=== PATIENT | male | born 1950 | race Caucasian/White ===

== ENCOUNTER 2017-07-15 07:06 | Inpatient (IN) | payer OTHER ==
[~2017-07-15] VITALS: Ht 172.7 cm; Wt 81.6 kg
[2017-07-15] MEDS ORDERED: AMOX1TAB5 (07:36)
[2017-07-22] MEDS ORDERED: PROTECT PLUS S1 EACH PO (13:27)
== END 2017-07-22 19:20 | disposition home or self-care (01) | DRG 603 ==
LOC: ER 07:06 → SURH 12:22
PROC: 4A033R1 Measurement of Arterial Saturation, Peripheral, Percutaneous Approach (ICD-10-PCS; principal; 2017-07-15)
PROC: BQ3DZZZ Magnetic Resonance Imaging (MRI) of Right Lower Leg (ICD-10-PCS; 2017-07-15)
PROC: BT43ZZZ Ultrasonography of Bilateral Kidneys (ICD-10-PCS; 2017-07-15)
PROC: BW4GZZZ Ultrasonography of Pelvic Region (ICD-10-PCS; 2017-07-15)
DX: L03.115 Cellulitis of right lower limb (principal); N39.0 Urinary tract infection, site not specified; N17.8 Other acute kidney failure; G47.33 Obstructive sleep apnea (adult) (pediatric); N18.1 Chronic kidney disease, stage 1; T24.211A Burn of second degree of right thigh, initial encounter; X10.0XXA Contact with hot drinks, initial encounter; Y93.89 Activity, other specified; Y92.89 Other specified places as the place of occurrence of the external cause; Y99.8 Other external cause status; R33.8 Other retention of urine; C61 Malignant neoplasm of prostate
CPT/HCPCS: 73221

== ENCOUNTER 2017-08-10 13:39 | Outpatient (CLI) | payer OTHER ==
[~2017-08-10 13:39] MED LIST: AMOX1TAB5; PROTECT PLUS S1 EACH PO
== END 2017-08-10 13:44 | disposition home or self-care (01) ==
LOC: LAB 13:39
DX: N39.0 Urinary tract infection, site not specified (principal)

== ENCOUNTER 2017-08-10 16:24 | Outpatient (CLI) | payer OTHER | END 2017-08-10 17:00 | disposition home or self-care (01) | LOC: RAD 16:24 | DX: J32.8 Other chronic sinusitis (principal); R05 Cough ==

== ENCOUNTER → 2017-08-11 | Outpatient (CLI) | payer OTHER | END | disposition home or self-care (01) | LOC: TOM 08:21 | DX: C61 Malignant neoplasm of prostate (principal) ==

== ENCOUNTER 2017-08-15 08:48 | Outpatient (CLI) | payer OTHER | END 2017-08-15 17:32 | disposition home or self-care (01) | LOC: NUCLEAR 08:48 | DX: C61 Malignant neoplasm of prostate (principal); C79.51 Secondary malignant neoplasm of bone | CPT/HCPCS: 78306; A9503 ==

== ENCOUNTER 2017-08-23 13:50 | Outpatient (CLI) | payer OTHER | END 2017-08-23 13:58 | disposition home or self-care (01) | LOC: TOM 13:50 | DX: J32.0 Chronic maxillary sinusitis (principal); J34.1 Cyst and mucocele of nose and nasal sinus ==

== ENCOUNTER 2017-09-04 08:32 | Outpatient (CLI) | payer OTHER ==
[~2017-09-04] VITALS: Ht 172.7 cm; Wt 81.6 kg
== END 2017-09-04 08:45 | disposition home or self-care (01) ==
LOC: OFIC 805 08:32
DX: J30.89 Other allergic rhinitis (principal); R05 Cough; R09.81 Nasal congestion

== ENCOUNTER → 2017-09-14 | Outpatient (CLI) | payer OTHER ==
[~2017-09-14] MED LIST changes: +BACTRIM DS TAB1 EACH; +CIPRO500 MG PO; +PNEU16DI2; +ZANTAC150 M3; +ZANTAC300 MG PO
== END | disposition home or self-care (01) ==
LOC: LAB 09:01
DX: E55.9 Vitamin D deficiency, unspecified (principal); J84.09 Other alveolar and parieto-alveolar conditions; Z13.29 Encounter for screening for other suspected endocrine disorder; N28.89 Other specified disorders of kidney and ureter

== ENCOUNTER 2017-09-17 03:38 | Emergency (ER) | payer OTHER ==
[~2017-09-17] VITALS: Ht 172.7 cm; Wt 81.6 kg
[~2017-09-17 03:38] MED LIST changes: -BACTRIM DS TAB1 EACH; -CIPRO500 MG PO; -PNEU16DI2; -ZANTAC150 M3; -ZANTAC300 MG PO
[2017-09-17] MEDS ORDERED: PNEU16DI2 (04:05)
[2017-09-17] MEDS ORDERED: ZANTAC150 M3 (04:05)
[2017-09-17] MEDS ORDERED: BACTRIM DS TAB1 EACH (04:05)
[2017-09-17] MEDS ORDERED: ZANTAC300 MG PO (09:08)
[2017-09-17] MEDS ORDERED: CIPRO500 MG PO (09:08)
== END 2017-09-17 12:33 | disposition home or self-care (01) ==
LOC: ER 03:38
DX: N39.0 Urinary tract infection, site not specified (principal); K29.70 Gastritis, unspecified, without bleeding; D72.829 Elevated white blood cell count, unspecified

== ENCOUNTER → 2017-09-19 16:14 | Outpatient (CLI) | payer OTHER ==
[~2017-09-19 16:14] MED LIST changes: +BACTRIM DS TAB1 EACH; +CIPRO500 MG PO; +PNEU16DI2; +ZANTAC150 M3; +ZANTAC300 MG PO
== END | disposition home or self-care (01) ==
LOC: LAB 16:14
DX: D72.828 Other elevated white blood cell count (principal); N39.0 Urinary tract infection, site not specified

== ENCOUNTER 2017-09-20 09:22 | Outpatient (CLI) | payer OTHER | END 2017-09-20 15:00 | disposition home or self-care (01) | LOC: TOM 09:22 | DX: R05 Cough (principal); R07.0 Pain in throat; J84.17 Other interstitial pulmonary diseases with fibrosis in diseases classified elsewhere; Z77.090 Contact with and (suspected) exposure to asbestos; J41.0 Simple chronic bronchitis ==

== ENCOUNTER 2017-11-14 09:06 | Outpatient (CLI) | payer OTHER ==
[~2017-11-14] VITALS: Ht 152.4 cm; Wt 81.6 kg
== END 2017-11-14 17:00 | disposition home or self-care (01) ==
LOC: OFIC 805 09:06
DX: R05 Cough (principal); J30.89 Other allergic rhinitis; R09.81 Nasal congestion

== ENCOUNTER 2018-01-01 08:12 | Outpatient (CLI) | payer OTHER ==
[~2018-01-01] VITALS: Ht 152.4 cm; Wt 81.6 kg
== END 2018-01-01 08:35 | disposition home or self-care (01) ==
LOC: OFIC 805 08:12
DX: J30.89 Other allergic rhinitis (principal); R09.81 Nasal congestion; R05 Cough

== ENCOUNTER 2018-01-02 08:30 | Outpatient (CLI) | payer OTHER | END 2018-01-02 08:42 | disposition home or self-care (01) | LOC: RAD 08:30 | DX: R05 Cough (principal); E04.1 Nontoxic single thyroid nodule ==

== ENCOUNTER 2018-01-02 09:23 | Outpatient (CLI) | payer OTHER | END 2018-01-02 10:10 | disposition home or self-care (01) | LOC: LAB 09:23 | DX: K57.30 Diverticulosis of large intestine without perforation or abscess without bleeding (principal); K21.9 Gastro-esophageal reflux disease without esophagitis; R05 Cough; R14.3 Flatulence ==

== ENCOUNTER 2018-01-04 07:00 | Outpatient (CLI) | payer OTHER | END 2018-01-04 10:00 | disposition home or self-care (01) | LOC: LAB 07:00 | DX: R05 Cough (principal); K21.9 Gastro-esophageal reflux disease without esophagitis; R14.3 Flatulence; K57.30 Diverticulosis of large intestine without perforation or abscess without bleeding; C80.1 Malignant (primary) neoplasm, unspecified ==

== ENCOUNTER 2018-01-11 07:29 | Outpatient (CLI) | payer OTHER | END 2018-01-11 07:33 | disposition home or self-care (01) | LOC: SONOGRAMA 07:29 → MAMO-SONO 08:15 | DX: R05 Cough (principal); K21.9 Gastro-esophageal reflux disease without esophagitis; K57.30 Diverticulosis of large intestine without perforation or abscess without bleeding; K80.20 Calculus of gallbladder without cholecystitis without obstruction ==

== ENCOUNTER 2018-01-15 07:41 | Day surgery (SDC) | payer OTHER | END 2018-01-15 11:30 | disposition home or self-care (01) | LOC: AMB-ENDOS 07:41 | DX: K29.60 Other gastritis without bleeding (principal); K21.9 Gastro-esophageal reflux disease without esophagitis ==

== ENCOUNTER 2018-05-24 21:53 | Emergency (ER) | payer OTHER ==
[~2018-05-24] VITALS: Ht 172.7 cm; Wt 86.2 kg
== END 2018-05-24 22:37 | disposition home or self-care (01) ==
LOC: ER 21:53
DX: B34.9 Viral infection, unspecified (principal)

== ENCOUNTER 2018-07-05 07:12 | Outpatient (CLI) | payer OTHER | END 2018-07-05 07:32 | disposition home or self-care (01) | LOC: LAB 07:12 | DX: E03.8 Other specified hypothyroidism (principal); C61 Malignant neoplasm of prostate; I11.9 Hypertensive heart disease without heart failure; E78.2 Mixed hyperlipidemia; R73.09 Other abnormal glucose ==

== ENCOUNTER 2018-07-05 07:59 | Outpatient (CLI) | payer OTHER | END 2018-07-05 08:01 | disposition home or self-care (01) | LOC: SONOGRAMA 07:59 → MAMO-SONO 08:15 | DX: K76.0 Fatty (change of) liver, not elsewhere classified (principal) ==

== ENCOUNTER → 2020-06-20 | Emergency (ER) | payer OTHER ==
[~2020-06-20] VITALS: Ht 172.7 cm; Wt 87.5 kg
== END | disposition home or self-care (01) ==
LOC: ER 10:27
DX: S61.021A Laceration with foreign body of right thumb without damage to nail, initial encounter (principal); W45.8XXA Other foreign body or object entering through skin, initial encounter; Y93.64 Activity, baseball; Y92.39 Other specified sports and athletic area as the place of occurrence of the external cause; Y99.8 Other external cause status

== ENCOUNTER 2020-06-22 12:19 | Outpatient (CLI) | payer OTHER | END 2020-06-22 12:21 | disposition home or self-care (01) | LOC: TOM 12:19 | PROVIDERS: ATTEND Specialist | DX: C61 Malignant neoplasm of prostate (principal) ==

== ENCOUNTER → 2020-06-25 | Outpatient (CLI) | payer OTHER | END | disposition home or self-care (01) | LOC: NUCLEAR 14:30 | PROVIDERS: ATTEND Orthopaedic Surgery | DX: M81.0 Age-related osteoporosis without current pathological fracture (principal) ==

== ENCOUNTER 2020-06-29 16:15 | Outpatient (CLI) | payer OTHER | END 2020-06-29 16:20 | disposition home or self-care (01) | LOC: LAB 16:15 | PROVIDERS: ATTEND Orthopaedic Surgery | DX: E83.42 Hypomagnesemia (principal); M85.89 Other specified disorders of bone density and structure, multiple sites; E56.1 Deficiency of vitamin K ==

== ENCOUNTER 2021-04-26 23:52 | Inpatient (IN) | payer OTHER ==
[~2021-04-26] VITALS: Ht 172.7 cm; Wt 90.7 kg
[2021-04-27] MEDS ORDERED: TAMS0.4C PO (00:10)
--- NOTE | 2021-04-27 00:10 | NUR ---
SE RECIBE PACIENTE ALERTA Y ORIENTADO X3 QUIEN INDICA QUE BATES TENIDO DOLOR ABD DESDE EL CYRIL DE HOY. REFIERE QUE TUVO SANGRADO RECTAL NELIDA QUE PADECE DE HEMORROIDES Y QUE LAS MISMAS SE TRATATAS POR UN GASTROENTEROLOGO CHAD MES. REFIERE QUE HOY ORAL ABUNDATE SANGRADO EN DOS SANTOS ESCRETA Y COLOR HEREDIA BRILLANTE. SE MONITOREAN S/V Y SE UBICA PACIENTE.
--- NOTE | 2021-04-27 00:13 | NUR ---
SE NIURKASheeba GALVIN Y MAC 101.4 F.
--- NOTE | 2021-04-27 00:46 | NUR ---
PACIENTE EVALUADO POR DR MONTERO QUIEN [place] [facility]. RACHEL ALVARES ORIENTA A PACIENTE SOBRE EL MISMO Y REFIERE ENTENDER, LE NIURKA MUESTRAS DE LABORATORIO Y LE CANLAIZA BAJO MEDIDAS ASEPTICAS. LE ADM MED RAVEN ORDEN. PENDIENTE ESTUDIO PACIENTE SE MANTIENE BAJO OBSERVACION POR CAMBIOS SIGNIFICATIVOS EN DOS SANTOS TRATAMIENTO.
--- NOTE | 2021-04-27 06:15 | NUR ---
5:15AM SE NOTIFICA SONOGRAMA ABDOMINAL NOTIFICADO A PERSONAL DE TURNO (RUI).
--- NOTE | 2021-04-27 08:04 | NUR ---
SE RECIBE PACIENTE MASCULINO PENDIENTE DE SONOGRAMA ABDOMINAL. PACIENTE PENDIENTE DE ENTREGAR FECAL MUESTRA DE ESCRETA.
[2021-04-28] MEDS ORDERED: HYDROCORTISONE30 G4 (11:12)
== END 2021-05-08 11:34 | disposition home or self-care (01) | DRG 446 ==
LOC: ER 23:52 → SEC-K 04-27 10:39 → SURH 04-27 10:39
PROVIDERS: ADMIT Surgery; ATTEND Surgery
PROC: BW21YZZ Computerized Tomography (CT Scan) of Abdomen and Pelvis using Other Contrast (ICD-10-PCS; 2021-04-27)
PROC: BW40ZZZ Ultrasonography of Abdomen (ICD-10-PCS; 2021-04-27)
PROC: 02HV33Z Insertion of Infusion Device into Superior Vena Cava, Percutaneous Approach (ICD-10-PCS; 2021-04-29)
PROC: 3E0436Z Introduction of Nutritional Substance into Central Vein, Percutaneous Approach (ICD-10-PCS; 2021-04-29)
PROC: 0F9430Z Drainage of Gallbladder with Drainage Device, Percutaneous Approach (ICD-10-PCS; principal; 2021-04-30)
PROC: 3E0F7SF Introduction of Other Gas into Respiratory Tract, Via Natural or Artificial Opening (ICD-10-PCS; 2021-04-30)
DX: K80.00 Calculus of gallbladder with acute cholecystitis without obstruction (principal); K64.9 Unspecified hemorrhoids; E88.09 Other disorders of plasma-protein metabolism, not elsewhere classified; C61 Malignant neoplasm of prostate; B96.1 Klebsiella pneumoniae [K. pneumoniae] as the cause of diseases classified elsewhere; B95.7 Other staphylococcus as the cause of diseases classified elsewhere; B96.89 Other specified bacterial agents as the cause of diseases classified elsewhere; Z20.822 Contact with and (suspected) exposure to COVID-19

== ENCOUNTER 2021-05-28 20:21 | Emergency (ER) | payer OTHER ==
[~2021-05-28] VITALS: Ht 172.7 cm; Wt 83.9 kg
[~2021-05-28 20:21] MED LIST changes: +HYDROCORTISONE30 G4; +TAMS0.4C PO
[2021-05-28] MEDS ORDERED: VISTARIL25 MG PO (22:10)
== END 2021-05-28 23:33 | disposition home or self-care (01) ==
LOC: ER 20:21
DX: R42 Dizziness and giddiness (principal); F41.9 Anxiety disorder, unspecified

== ENCOUNTER → 2021-08-02 07:11 | Outpatient (CLI) | payer OTHER ==
[~2021-08-02 07:11] MED LIST changes: +VISTARIL25 MG PO
== END | disposition home or self-care (01) ==
LOC: LAB 07:11
DX: N40.1 Benign prostatic hyperplasia with lower urinary tract symptoms (principal); E03.9 Hypothyroidism, unspecified; I10 Essential (primary) hypertension

== ENCOUNTER 2021-08-02 08:27 | Outpatient (CLI) | payer OTHER | END 2021-08-02 08:36 | disposition home or self-care (01) | LOC: SONOGRAMA 08:27 | DX: R14.0 Abdominal distension (gaseous) (principal) ==

== ENCOUNTER 2021-08-27 07:10 | Outpatient (CLI) | payer OTHER | END 2021-08-27 07:14 | disposition home or self-care (01) | LOC: SONOGRAMA 07:10 | PROVIDERS: ATTEND General Practice | DX: L02.211 Cutaneous abscess of abdominal wall (principal); S30.1XXA Contusion of abdominal wall, initial encounter ==

== ENCOUNTER 2021-09-01 09:13 | Outpatient (CLI) | payer OTHER | END 2021-09-01 09:16 | disposition home or self-care (01) | LOC: LAB 09:13 | PROVIDERS: ATTEND Radiology Diagnostic Radiology | DX: K57.92 Diverticulitis of intestine, part unspecified, without perforation or abscess without bleeding (principal) ==

== ENCOUNTER 2021-09-02 07:15 | Outpatient (CLI) | payer OTHER | END 2021-09-02 07:21 | disposition home or self-care (01) | LOC: TOM 07:15 | PROVIDERS: ATTEND General Practice | DX: K59.00 Constipation, unspecified (principal); K57.92 Diverticulitis of intestine, part unspecified, without perforation or abscess without bleeding | CPT/HCPCS: 74018; 74177; Q9965 ==

== ENCOUNTER 2021-11-08 12:45 | Outpatient (CLI) | payer OTHER | END 2021-11-08 12:47 | disposition home or self-care (01) | LOC: SONOGRAMA 12:45 | DX: E03.9 Hypothyroidism, unspecified (principal) ==

== ENCOUNTER 2022-07-14 07:47 | Outpatient (CLI) | payer OTHER | END 2022-07-14 07:48 | disposition home or self-care (01) | LOC: NUCLEAR 07:47 | DX: C61 Malignant neoplasm of prostate (principal) | CPT/HCPCS: 78815; A9552 ==

== ENCOUNTER → 2022-08-11 | Emergency (ER) | payer OTHER ==
[~2022-08-11] VITALS: Ht 172.7 cm; Wt 88.5 kg
[~2022-08-11] MED LIST changes: +LEVOTHYROXINE25 MC1 PO
== END | disposition left against medical advice (07) ==
LOC: ER 03:49
DX: Z53.21 Procedure and treatment not carried out due to patient leaving prior to being seen by health care provider (principal)

== ENCOUNTER 2022-08-15 07:43 | Outpatient (CLI) | payer OTHER | END 2022-08-15 08:00 | disposition home or self-care (01) | LOC: TOM 07:43 | DX: R91.8 Other nonspecific abnormal finding of lung field (principal); D49.59 Neoplasm of unspecified behavior of other genitourinary organ | CPT/HCPCS: 71270; Q9965 ==

== ENCOUNTER 2023-05-03 09:51 | Outpatient (CLI) | payer OTHER | END 2023-05-03 09:56 | disposition home or self-care (01) | LOC: TOM 09:51 | DX: J34.9 Unspecified disorder of nose and nasal sinuses (principal); J32.9 Chronic sinusitis, unspecified ==

== ENCOUNTER 2023-08-15 08:06 | Outpatient (CLI) | payer OTHER | END 2023-08-15 08:09 | disposition home or self-care (01) | LOC: RX STUDY 08:06 | DX: K21.9 Gastro-esophageal reflux disease without esophagitis (principal) ==

== ENCOUNTER 2024-05-05 06:49 | Emergency (ER) | payer OTHER ==
[~2024-05-05] VITALS: Ht 172.7 cm; Wt 83.9 kg
[2024-05-05] MEDS ORDERED: PROTONIX40 MG PO ×2 (07:33→08:36)
[2024-05-05] MEDS ORDERED: PEPCID AC20 MG (07:33)
[2024-05-05] MEDS ORDERED: BENZONATATE200 M1 PO (08:36)
[2024-05-05] MEDS ORDERED: AZITHROMYCIN500 MG PO (08:36)
[2024-05-05] MEDS ORDERED: SINGULAIR10 MG PO (08:36)
[2024-05-05] MEDS ORDERED: MEDROLPACK PO (08:36)
== END 2024-05-05 08:47 | disposition home or self-care (01) ==
LOC: ER 06:50
DX: R05.9 Cough, unspecified (principal)

== ENCOUNTER 2024-06-29 20:21 | Emergency (ER) | payer OTHER ==
[~2024-06-29] VITALS: Ht 172.7 cm; Wt 77.1 kg
[~2024-06-29 20:21] MED LIST changes: +AZITHROMYCIN500 MG PO; +BENZONATATE200 M1 PO; +MEDROLPACK PO; +PEPCID AC20 MG; +PROTONIX40 MG PO; +SINGULAIR10 MG PO
[2024-06-29] MEDS ORDERED: KETOROLAC TROMETHAMINE 30 MG VIAL IM STA (23:01)
[2024-06-29] MEDS ORDERED: KETOROLAC TROMETHAMINE 30 MG VIAL ONE (23:20)
== END 2024-06-30 00:43 | disposition home or self-care (01) ==
LOC: ER 21:20
DX: M79.642 Pain in left hand (principal); M19.042 Primary osteoarthritis, left hand

== ENCOUNTER → 2025-01-29 | Emergency (ER) | payer OTHER | END | disposition left against medical advice (07) | LOC: ER 19:07 | DX: Z53.21 Procedure and treatment not carried out due to patient leaving prior to being seen by health care provider (principal) ==

== ENCOUNTER 2025-02-03 06:30 | Emergency (ER) | payer OTHER ==
[~2025-02-03] VITALS: Ht 172.7 cm; Wt 88.5 kg
[2025-02-03] MEDS ORDERED: ARMOUR THYROID60 M1 PO (07:35)
[2025-02-03] MEDS ORDERED: BRIMONIDINE TART5 ML OP (07:35)
[2025-02-03] MEDS ORDERED: ROSUVASTATIN CA10 MG PO (07:36)
[2025-02-03] MEDS ORDERED: KETOROLAC TROMET3 ML OP (07:37)
[2025-02-03] MEDS ORDERED: BREO ELLIPTA I1 EACH IH (07:37)
[2025-02-03] MEDS ORDERED: PRED FORTE5 ML OP (07:37)
[2025-02-03] MEDS ORDERED: OMEPRAZOLE40 MG PO (07:37)
[2025-02-03] MEDS ORDERED: OFLOXACIN5 ML OPHT (07:37)
[2025-02-03] MEDS ORDERED: FAMOTIDINE20 MG PO (07:37)
[2025-02-03] MEDS ORDERED: MIRTAZAPINE7.5 MG PO (07:37)
[2025-02-03] MEDS ORDERED: PANTOPRAZOLE SO40 MG PO (07:38)
[2025-02-03] MEDS ORDERED: [UNRECOGNIZED DRUG - OTHER] PO (07:38)
[2025-02-03] MEDS ORDERED: LEVOTHYROXINE50 MCG PO (07:38)
[2025-02-03] MEDS ORDERED: TAMSULOSIN HCL0.4 MG PO (07:38)
[2025-02-03] MEDS ORDERED: URETRON D-S TAB1 TAB PO (07:38)
[2025-02-03] MEDS ORDERED: NITROFURANTOIN100 M1 PO (07:38)
[2025-02-03] MEDS ORDERED: VENTOLIN HFA18 GM IH (07:38)
[2025-02-03] MEDS ORDERED: BACTRIM DS TAB1 EACH PO (07:38)
[2025-02-03] MEDS ORDERED: TOLTERODINE TART4 MG PO (07:39)
[2025-02-03] MEDS ORDERED: GABAPENTIN100 M2 PO (07:39)
[2025-02-03] MEDS ORDERED: FAMOTIDINE40 MG PO (07:39)
[2025-02-03] MEDS ORDERED: ZOVIRAX800 MG PO (07:39)
[2025-02-03] MEDS ORDERED: AMITRIPTYLINE H10 MG PO (07:39)
[2025-02-03] MEDS ORDERED: CIPROFLOXACIN500 MG PO (07:39)
[2025-02-03] MEDS ORDERED: LORATADINE10 MG PO (07:39)
[2025-02-03] MEDS ORDERED: BREO ELLIPTA 21 EACH IH (07:39)
[2025-02-03] MEDS ORDERED: MUCINEX DM ER1 EACH PO (07:40)
[2025-02-03] MEDS ORDERED: ORALONE5 GM TOP (07:40)
[2025-02-03] MEDS ORDERED: CLINDAMYCIN HC300 MG PO (07:40)
[2025-02-03] MEDS ORDERED: CEFDINIR300 MG PO (07:40)
[2025-02-03] MEDS ORDERED: CEFTRIAXONE SODIUM 1,000 MG VIAL IM ONE (08:30)
[2025-02-03] MEDS ORDERED: DEXAMETHASONE SODIUM PHOSPHATE 4 MG/ML VIAL IM ONE (08:30)
[2025-02-03] MEDS ORDERED: KETOROLAC TROMETHAMINE 30 MG VIAL IM ONE (08:30)
[2025-02-03 09:32] LABS: BASO % 0.6 % (0.1-1.2); EOS # 0.12 (0.04-0.54); EOS % 1.7 % (0.7-7.0); LYMPH # 1.72 (1.18-3.74); LYMPH % 24.5 % (19.3-53.1); MEAN PLATELET VOLUME 10.00 fl (9.4-12.4); MONO # 0.53 (0.24-0.82); MONO % 7.5 % (4.7-12.5); NEUT # 4.61 (1.56-6.13); NEUT % 65.6 % (34.0-71.1); RED CELL DISTRIBUTION WIDTH 12.6 % (11.6-14.4)
[2025-02-03 09:36] LABS: ERYTHROCYTE SEDIMENTATION RATE 22 mm/hr (0-20)
[2025-02-03 09:58] LABS: ALT/SGPT 57 U/L (12-78); AST/SGOT 37 U/L (15-37); BILIRUBIN TOTAL 0.43 mg/dL (0.3-1.2); BUN CREA RATIO 20 (7.0-25.0); CREATININE SERUM 1.05 mg/dL (0.70-1.30); GFR 68.67; GLOBULINA 3.7 G/DL (2.4-3.5); GLUCOSE FASTING 129 mg/dL (65-100); OSMOLALITY SERUM 290 MOSM/KG (275-295)
[2025-02-03 10:17] LABS: COVID-19 AG NEGATIVE (NEGATIVE)
[2025-02-03] MEDS ORDERED: MEDROLPACK PO (12:19)
[2025-02-03] MEDS ORDERED: PEPCID AC20 MG PO (12:19)
[2025-02-03] MEDS ORDERED: KETO10TA2 PO (12:19)
[2025-02-03 13:35] VITALS: BP 120/70; O2SAT 98
== END 2025-02-03 13:40 | disposition home or self-care (01) ==
LOC: ER 06:31
PROVIDERS: Student in an Organized Health Care Education/Training Program
DX: S61.012A Laceration without foreign body of left thumb without damage to nail, initial encounter (principal); W25.XXXA Contact with sharp glass, initial encounter; Y93.89 Activity, other specified; Y92.89 Other specified places as the place of occurrence of the external cause; Y99.9 Unspecified external cause status; J02.8 Acute pharyngitis due to other specified organisms; J32.0 Chronic maxillary sinusitis; M19.09 Primary osteoarthritis, other specified site; Z20.822 Contact with and (suspected) exposure to COVID-19; E03.9 Hypothyroidism, unspecified; Z85.46 Personal history of malignant neoplasm of prostate
CPT/HCPCS: 36415; 70487; 96372; 99283; J0696; J1100; J1885; Q9965